=== PATIENT | male | born 1945 | race Caucasian/White ===

== ENCOUNTER 2020-09-11 18:44 | Inpatient (IN) ==
[~2020-09-11 18:44] MED LIST: *HR* Amiodarone 150 MG/3 ML VIAL IVPB ONE; *HR* Amiodarone Premix 360 MG/200 ML BAG IVC ONE; *HR* EPINEPHrine 1 MG/10 ML SYRINGE IVP ONE; *HR* Etomidate 20 MG/10 ML AMPUL IVP ONE; *HR* Magnesium Sulfate 2 GM/50 ML PIGGYBACK IVPB ONE; *HR* Rocuronium Bromide 50 MG/5 ML VIAL IVP ONE; EPINEPHrine 1 MG/ML VIAL IV ONE; Norepinephrine 4 MG/254 ML IV.SOLN IVC ONE
[2020-09-11] MEDS ORDERED: Lidocaine 1% 20 ML MDV ONE (18:53)
[2020-09-11] MEDS ORDERED: Ondansetron 4 MG/2 ML VIAL ONE (18:59)
[2020-09-11] MEDS ORDERED: 0.9 % Sodium Chloride 1,000 ML ONE ×2 (19:10→20:57)
[2020-09-11] MEDS ORDERED: Heparin 1,000 UNITS/500 mL 500 ML ONE ×2 (19:10→19:36)
[2020-09-11] MEDS ORDERED: Nitroglycerin 1,000 MCG/5 ML VIAL IV ONE (19:36)
[2020-09-11] MEDS ORDERED: *HR* Heparin 10,000 UNIT/10 ML VIAL ONE (19:36)
[2020-09-11] MEDS ORDERED: ISOVUE-370 200 ML INFUS..BTL ONE (19:36)
[2020-09-11 19:39] LABS: Basophils # 0.2 K/mcL (0.0-0.2); Basophils % 0.8 %; Eosinophils # 0.4 K/mcL (0.0-0.6); Eosinophils % 1.8 %; Hematocrit 47.7 % (37.5-50.1); Hemoglobin 15.5 g/dL (12.9-16.9); Immature Granulocytes % 1.4 % (0-4); Lymphocytes # 6.5 K/mcL (0.6-4.6); Lymphocytes % 29.7 %; Mean Corpuscular HGB Conc 32.5 g/dL (31.6-35.5); Mean Corpuscular Hemoglobin 29.9 pg (28.0-33.3); Mean Corpuscular Volume 91.9 fL (83.0-100.0); Mean Platelet Volume 9.9 fL (9.4-12.4); Monocytes # 1.5 K/mcL (0.0-1.3); Monocytes % 6.8 %; Platelet Count 311 K/mcL (140-400); Red Blood Count 5.19 M/mcL (4.19-5.50); Red Cell Distribution Width 13.7 % (11.5-14.5); Segmented Neutrophils % 59.5 %; White Blood Count 21.8 K/mcL (4.3-11.1)
[2020-09-11] MEDS ORDERED: Piperacillin/Tazobactam 3.375 GM in 0.9 % Sodium Chloride Mini Bag 100 ML IVPB ONE (19:43)
[2020-09-11 19:47] LABS: Prothrombin Time 11.5 Seconds (9.4-12.1)
[2020-09-11 19:50] LABS: ABG Base Excess -5 mEq/L (-2 to 3); ABG HCO3 23 mEq/L (21-27); ABG Oxygen Saturation 87 % (95-98); ABG PCO2 54 mmHg (35-45); ABG PH 7.24 pH Units (7.32-7.45); ABG PO2 64 mmHg (85-104); ABG TCO2 25 mEq/L (20-26)
[2020-09-11 19:59] LABS: BUN/Creatinine Ratio 15 (6-26); Blood Urea Nitrogen 18 mg/dL (8-23); Calcium 10.2 mg/dL (8.6-10.3); Carbon Dioxide 19 mEq/L (23-29); Chloride 105 mEq/L (98-107); Glucose 191 mg/dL (70-105); Magnesium 2.4 mg/dL (1.6-2.6); Osmolality,Calculated 289 (280-300); Potassium 3.6 mEq/L (3.5-5.1); Sodium 136 mEq/L (136-145); Troponin I < 0.03 ng/mL (< 0.04); eGFR For African Americans > 60 (> 60); eGFR For Non-African Americans 58 (> 60)
[2020-09-11 20:11] LABS: Platelet Estimate Normal (Normal); Reactive Lymphocytes Present (Not Present)
[2020-09-11] MEDS ORDERED: Amiodarone Premix 360 MG/200 ML BAG IVC ONE (20:26)
[2020-09-11] MEDS ORDERED: Naloxone 0.4 MG/ML INJ IVP PRN (21:08)
[2020-09-11 21:10] LABS: ABG Base Excess -12 mEq/L (-2 to 3); ABG HCO3 17 mEq/L (21-27); ABG Oxygen Saturation 94 % (95-98); ABG PCO2 53 mmHg (35-45); ABG PH 7.12 pH Units (7.32-7.45); ABG PO2 94 mmHg (85-104); ABG TCO2 19 mEq/L (20-26); Blood Gas VT 500 cc
[2020-09-11] MEDS: EPINEPHrine 1 MG in D5% in Water 250 ML IVC SCH ×2 (21:10→22:21)
[2020-09-11] MEDS ORDERED: Artificial Tears SOLN 15 ML BOTTLE BOTH EYES PRN (21:10)
[2020-09-11] MEDS ORDERED: D5% in Water 1,000 ML IVC PRN (21:17)
[2020-09-11] MEDS ORDERED: *HR* Dextrose 50 % in Water (Vial) 50 ML VIAL IVP PRN (21:17)
[2020-09-11] MEDS ORDERED: Dextrose Gel 15 GM/37.5 ML TUBE PO PRN ×2 (21:17)
[2020-09-11] MEDS ORDERED: Perflutren Lipid Microsphere 1.3 ML in 0.9 % Sodium Chloride 8.7 ML IVP PRN (21:32)
[2020-09-11] MEDS: FentaNYL (PF) 1,000 MCG/100 ML IV.SOLN IVC SCH ×2 (22:22→22:31)
[2020-09-11 22:36] LABS: Bilirubin,Urine Negative (Negative); Blood,Urine Large (Negative); Clarity,Urine Turbid (Clear); Color,Urine Yellow (Yellow); Glucose,Urine (UA) 300 mg/dL (Normal); Granular Casts,Urine Many per lpf (None Seen); Hyaline Casts,Urine Many per lpf (None Seen); Ketones,Urine Trace mg/dL (Negative); Leukocyte Esterase,Urine Negative (Negative); Mucus,Urine Few per lpf (None-Few); Nitrite,Urine Negative (Negative); Protein,Urine >=300 mg/dL (Neg-Trace); RBC,Urine TNTC per hpf (0-3); Specific Gravity,Urine 1.025 (1.010-1.025); Urobilinogen,Urine Normal (Normal)
[2020-09-11] MEDS: Pantoprazole 40 MG VIAL IVP SCH (22:38)
[2020-09-11] MEDS: Chlorhexidine Rinse 15 ML MOUTHWASH MM SCH (22:38)
[2020-09-11] MEDS: Insulin LISPRO 300 UNITS/3 ML VIAL SUBQ SCH (22:38)
[2020-09-11 23:18] LABS: ABG Base Excess -8 mEq/L (-2 to 3); ABG HCO3 20 mEq/L (21-27); ABG Oxygen Saturation 94 % (95-98); ABG PCO2 48 mmHg (35-45); ABG PH 7.23 pH Units (7.32-7.45); ABG PO2 84 mmHg (85-104); ABG TCO2 22 mEq/L (20-26); Blood Gas VT 400 cc
[2020-09-12 00:01] LABS: Adenovirus Not Detected (Not Detect); Bordetella Pertussis Not Detected (Not Detect); Chlamydophila pneumoniae Not Detected (Not Detect); Coronavirus 229E Not Detected (Not Detect); Coronavirus HKU1 Not Detected (Not Detect); Coronavirus NL63 Not Detected (Not Detect); Coronavirus OC43 Not Detected (Not Detect); Human Metapneumovirus Not Detected (Not Detect); Human Rhinovirus/Enterovirus Not Detected (Not Detect); Influenza A Subtype 2009 H1 Not Detected (Not Detect); Influenza B Not Detected (Not Detect); Mycoplasma pneumoniae Not Detected (Not Detect); Parainfluenza Virus 1 Not Detected (Not Detect); Parainfluenza Virus 2 Not Detected (Not Detect); Parainfluenza Virus 3 Not Detected (Not Detect); Parainfluenza Virus 4 Not Detected (Not Detect); Respiratory Syncytial Virus Not Detected (Not Detect); SARS-CoV-2 Not Detected (Not Detect)
[2020-09-12] MEDS: Artificial Tears SOLN 15 ML BOTTLE BOTH EYES SCH ×4 (00:12→11:44)
[2020-09-12] MEDS: *HR* Heparin 5,000 UNIT/ML VIAL SQ SCH ×2 (00:12→08:22)
[2020-09-12] MEDS: Insulin LISPRO 300 UNITS/3 ML VIAL SUBQ SCH ×3 (00:13→08:24)
[2020-09-12] MEDS: Amiodarone Premix 360 MG/200 ML BAG IVC SCH ×2 (01:19→12:16)
[2020-09-12] MEDS: EPINEPHrine 1 MG in D5% in Water 250 ML IVC SCH (01:41)
[2020-09-12] MEDS ORDERED: 0.9 % Sodium Chloride 1,000 ML IV ONE (01:45)
[2020-09-12 04:16] LABS: ABG Base Excess -9 mEq/L (-2 to 3); ABG HCO3 17 mEq/L (21-27); ABG Oxygen Saturation 99 % (95-98); ABG PCO2 39 mmHg (35-45); ABG PH 7.26 pH Units (7.32-7.45); ABG PO2 172 mmHg (85-104); ABG TCO2 18 mEq/L (20-26); Blood Gas VT 450 cc
[2020-09-12] MEDS: FentaNYL (PF) 1,000 MCG/100 ML IV.SOLN IVC SCH ×2 (04:24→10:43)
[2020-09-12 04:57] LABS: VBG Ionized Calcium 1.14 mmol/L (1.15-1.35)
[2020-09-12 05:02] LABS: Basophils # 0.1 K/mcL (0.0-0.2); Basophils % 0.4 %; Hemoglobin 14.1 g/dL (12.9-16.9); Immature Granulocytes % 3.1 % (0-4); Lymphocytes # 1.4 K/mcL (0.6-4.6); Lymphocytes % 5.3 %; Mean Corpuscular HGB Conc 32.8 g/dL (31.6-35.5); Mean Corpuscular Hemoglobin 29.9 pg (28.0-33.3); Mean Corpuscular Volume 91.1 fL (83.0-100.0); Mean Platelet Volume 9.7 fL (9.4-12.4); Monocytes # 2.4 K/mcL (0.0-1.3); Platelet Count 260 K/mcL (140-400); Red Blood Count 4.72 M/mcL (4.19-5.50); Red Cell Distribution Width 14.2 % (11.5-14.5); Segmented Neutrophils % 82.2 %; White Blood Count 26.7 K/mcL (4.3-11.1)
[2020-09-12] MEDS ORDERED: 0.9 % Sodium Chloride 1,000 ML IVC ONE (05:19)
[2020-09-12 05:20] LABS: Chol/HDL Ratio 2.8 (0-4.9); Platelet Estimate Normal (Normal)
[2020-09-12] MEDS: Pantoprazole 40 MG VIAL IVP SCH (05:31)
[2020-09-12] MEDS ORDERED: *HR* Midazolam HCl 2 MG/2 ML VIAL IVP ONE (05:34)
[2020-09-12] MEDS ORDERED: *HR* Midazolam HCl 5 MG/5 ML VIAL IVP ONE (05:35)
[2020-09-12 05:36] LABS: Thyroid Stimulating Hormone 2.523 mcIU/mL (0.340-5.600)
[2020-09-12 05:38] LABS: Triiodothyronine (T3) Free 2.89 pg/mL (2.50-3.90)
[2020-09-12 05:43] LABS: Albumin 3.5 g/dL (3.5-5.7); Albumin/Globulin Ratio 1.6 (1.1-2.2); Bilirubin,Direct 0.2 mg/dL (0.0-0.2); Bilirubin,Indirect 0.4 mg/dL (0.0-1.0); Bilirubin,Total 0.6 mg/dL (0.3-1.0); Calcium 8.9 mg/dL (8.6-10.3); Globulin 2.2 g/dL (2.4-3.5); Phosphorous 5.4 mg/dL (2.7-4.5); Potassium 4.1 mEq/L (3.5-5.1); Total Protein 5.7 g/dL (6.4-8.9)
[2020-09-12] MEDS ORDERED: Midazolam HCl 50 MG/100 ML IV.SOLN IVC SCH (05:45)
[2020-09-12] MEDS ORDERED: EPINEPHrine 5 MG in D5% in Water 250 ML IVC SCH (05:45)
[2020-09-12] MEDS ORDERED: Vancomycin 2,000 MG/520 ML IV.SOLN IVPB ONE (06:00)
[2020-09-12] MEDS ORDERED: Piperacillin/Tazobactam 3.375 GM in 0.9 % Sodium Chloride Mini Bag 100 ML IVPB SCH (08:00)
[2020-09-12 08:09] LABS: Estimated Average Glucose 157 mg/dl; Hemoglobin A1C 7.1 %
[2020-09-12] MEDS: Chlorhexidine Rinse 15 ML MOUTHWASH MM SCH (08:22)
[2020-09-12] MEDS ORDERED: Norepinephrine 4 MG/254 ML IV.SOLN IVC SCH (09:15)
[2020-09-12 09:40] LABS: Amphetamine Screen,Urine Negative ng/mL (Cutoff=1000); Barbiturate Screen,Urine Negative ng/mL (Cutoff=200); Benzodiazepines Screen,Urine Negative ng/mL (Cutoff=200); Cannabinoid Screen,Urine Negative ng/mL (Cutoff = 50); Cocaine Screen,Urine Negative ng/mL (Cutoff= 300); Opiate Screen,Urine Negative ng/mL (Cutoff=300); Phencyclidine Screen,Urine Negative ng/mL (Cutoff=25)
[2020-09-12 11:10] LABS: VBG Ionized Calcium 1.13 mmol/L (1.15-1.35)
[2020-09-12 11:27] LABS: Phosphorous 2.7 mg/dL (2.7-4.5)
[2020-09-12 11:40] LABS: Albumin 3.3 g/dL (3.5-5.7); Albumin/Globulin Ratio 1.5 (1.1-2.2); Bilirubin,Total 0.5 mg/dL (0.3-1.0); Calcium 8.4 mg/dL (8.6-10.3); Globulin 2.2 g/dL (2.4-3.5); Potassium 4.5 mEq/L (3.5-5.1); Total Protein 5.5 g/dL (6.4-8.9); Troponin I 2.31 ng/mL (< 0.04)
[2020-09-12] MEDS ORDERED: Calcium Gluconate 1gm/50mL 1 GM/50 ML BAG IVPB ONE (11:50)
[2020-09-12 13:11] VITALS: BP 100/55
[2020-09-12] MEDS ORDERED: Vancomycin 1,250 MG/262.5 ML IV.SOLN IVPB SCH (18:00)
[2020-09-13] MEDS ORDERED: Vancomycin 1,250 MG/262.5 ML IV.SOLN IVPB SCH (06:00)
== END 2020-09-12 14:50 | disposition short-term general hospital (02) | DRG 871 ==
LOC: EMEROOARM 18:44 → ICNU 20:13
PROVIDERS: ADMIT Family Medicine; ATTEND Family Medicine